=== PATIENT | female | born 1960 | race Caucasian/White ===

== ENCOUNTER 2016-08-09 10:29 | Emergency (ER) | payer OTHER ==
[~2016-08-09] VITALS: Ht 152.4 cm; Wt 98.5 kg
[~2016-08-09 10:29] MED LIST: ALLEGRA ALLERGY60 MG PO; BENTYL20 MG PO; CHOLESTYRAMINE P4 GM PO; CYANOCOBAL1000 MCG/2 IM; ENDOCET 5-3251 EACH PO; GABAPENTIN100 MG PO; LEVOTHYROXINE75 MCG PO; RABEPRAZOLE SOD20 MG PO; REGLAN10 MG PO
[2016-08-09 11:27] LABS: HEMATOCRIT 51.1 % (36.0-46.0); MCH 28.9 PG (29.0-34.0); MCHC 32.7 G/DL (30.0-36.0); MCV 88.4 FL (83-99); MEAN PLAT.VOLUME 9.5 uM^3 (9.5-12.4); PLATELET COUNT 343 K/uL (156-360); RBC DIS.WIDTH-CV 14.8 % (11.8-14.6); RBC DIS.WIDTH-SD 48.2 % (39-53); RED BLOOD COUNT 5.78 M/uL (3.80-5.20)
[2016-08-09 11:34] LABS: CHLORIDE 105 mEq/L (99-109); POTASSIUM 3.5 mEq/L (3.7-5.4); SODIUM 136 mEq/L (136-147)
[2016-08-09 11:37] LABS: GLUCOSE 185 mg/dL (70-99)
[2016-08-09 11:38] LABS: ANION GAP 17 MEQ/L (2-14)
[2016-08-09 11:39] LABS: TOTAL BILIRUBIN 0.3 mg/dL (0.0-1.0)
[2016-08-09 11:40] LABS: ALKALINE PHOSPHATASE 103 IU/L (3-129); GFR ESTIMATE (CALCULATED) 35 mL/min/
[2016-08-09 11:41] LABS: UREA NITROGEN (BUN) 27 mg/dL (9-23)
[2016-08-09] MEDS ORDERED: COLESTIPOL HCL1 GM PO (12:54)
[2016-08-09 13:57] LABS: AMYLASE 46 IU/L (1-118)
[2016-08-09 14:05] LABS: LIPASE 34 U/L (1.0-51.0)
[2016-08-09 15:26] LABS: ADD MIUA? YES; BILIRUBIN NEGATIVE; BLOOD NEGATIVE; COLOR YELLOW ((YELLOW)); GLUCOSE (STRIP) NEGATIVE; KETONES NEGATIVE; LEUKOCYTES NEGATIVE; NITRITE NEGATIVE; PROTEIN (STRIP) 100; SPECIFIC GRAVITY 1.013 (1.000-1.030); UROBILINOGEN 0.2 MG/DL (0.2-1.0)
[2016-08-09] MEDS ORDERED: ZOFRAN ODT4 MG PO (15:43)
[2016-08-09] MEDS ORDERED: BENTYL20 MG PO (15:43)
[2016-08-09 16:01] LABS: BACTERIA NONE SEEN /HPF; EPITHELIAL CELLS RARE /HPF; HYALINE CASTS 20-30 /LPF; MUCUS TRACE /LPF; RED BLOOD CELLS 0-5 /HPF (0-5); UCUL ADDED? NO; WHITE BLOOD CELLS 0-5 /HPF (0-5)
[2016-08-09 16:04] VITALS: BP 115/84
== END 2016-08-09 16:07 | disposition home or self-care (01) ==
LOC: EME 10:29
DX: R10.817 Generalized abdominal tenderness (principal); R11.2 Nausea with vomiting, unspecified; R19.7 Diarrhea, unspecified; Z85.038 Personal history of other malignant neoplasm of large intestine
CPT/HCPCS: 74176; 80053; 81003; 82150; 83605; 83630; 83690; 85027; 87493; 87506; 99281; 99285; J2405; J3010; J7030

== ENCOUNTER 2016-11-05 23:53 | Emergency (ER) | payer OTHER ==
[~2016-11-05] VITALS: Ht 152.4 cm; Wt 96.3 kg
[~2016-11-05 23:53] MED LIST changes: +COLESTIPOL HCL1 GM PO; +ZOFRAN ODT4 MG PO
[2016-11-06 00:28] LABS: HEMATOCRIT 31.2 % (36.0-46.0); MCH 29.7 PG (29.0-34.0); MCHC 32.4 G/DL (30.0-36.0); MCV 91.8 FL (83-99); MEAN PLAT.VOLUME 9.1 uM^3 (9.5-12.4); PLATELET COUNT 252 K/uL (156-360); RBC DIS.WIDTH-CV 15.5 % (11.8-14.6); WHITE BLOOD COUNT 11.8 K/uL (4.1-10.2)
[2016-11-06 00:43] LABS: CHLORIDE 113 mEq/L (99-109); POTASSIUM 2.9 mEq/L (3.7-5.4); SODIUM 145 mEq/L (136-147)
[2016-11-06 00:45] LABS: GLUCOSE 130 mg/dL (70-99)
[2016-11-06 00:46] LABS: ANION GAP 10 MEQ/L (2-14)
[2016-11-06 00:47] LABS: TOTAL BILIRUBIN 0.3 mg/dL (0.0-1.0)
[2016-11-06 00:48] LABS: ALKALINE PHOSPHATASE 69 IU/L (3-129)
[2016-11-06 00:49] LABS: GFR ESTIMATE (CALCULATED) 54 mL/min/
[2016-11-06 00:50] LABS: UREA NITROGEN (BUN) 17 mg/dL (9-23)
[2016-11-06 01:05] LABS: ADD MIUA? YES; BILIRUBIN NEGATIVE; BLOOD NEGATIVE; COLOR STRAW ((YELLOW)); GLUCOSE (STRIP) NEGATIVE; KETONES NEGATIVE; LEUKOCYTES MODERATE; NITRITE NEGATIVE; PROTEIN (STRIP) NEGATIVE; SPECIFIC GRAVITY 1.004 (1.000-1.030); UROBILINOGEN 0.2 MG/DL (0.2-1.0)
[2016-11-06 01:20] LABS: BACTERIA NONE SEEN /HPF; EPITHELIAL CELLS 1+ /HPF; MUCUS NONE SEEN /LPF; RED BLOOD CELLS 0-5 /HPF (0-5); UCUL ADDED? NO; WHITE BLOOD CELLS 15-20 /HPF (0-5)
[2016-11-06 02:10] VITALS: BP 107/71
== END 2016-11-06 02:14 | disposition home or self-care (01) ==
LOC: EME 23:53
DX: R60.0 Localized edema (principal); E87.6 Hypokalemia; L70.9 Acne, unspecified; Z85.038 Personal history of other malignant neoplasm of large intestine; Z90.49 Acquired absence of other specified parts of digestive tract; Z90.710 Acquired absence of both cervix and uterus; Z87.891 Personal history of nicotine dependence
CPT/HCPCS: 80053; 81003; 85027; 99281; 99284

== ENCOUNTER 2017-01-07 17:31 | Emergency (ER) | payer OTHER ==
[~2017-01-07] VITALS: Ht 152.4 cm; Wt 99.4 kg
[2017-01-07 18:00] LABS: HEMATOCRIT 37.5 % (36.0-46.0); MCH 30.2 PG (29.0-34.0); MCHC 32.5 G/DL (30.0-36.0); MCV 92.8 FL (83-99); PLATELET COUNT 303 K/uL (156-360); RBC DIS.WIDTH-CV 13.7 % (11.8-14.6); RBC DIS.WIDTH-SD 46.9 % (39-53); RED BLOOD COUNT 4.04 M/uL (3.80-5.20); WHITE BLOOD COUNT 12.6 K/uL (4.1-10.2)
[2017-01-07 18:09] LABS: CHLORIDE 105 mEq/L (99-109); POTASSIUM 3.6 mEq/L (3.7-5.4); SODIUM 140 mEq/L (136-147)
[2017-01-07 18:11] LABS: GLUCOSE 194 mg/dL (70-99)
[2017-01-07 18:12] LABS: ANION GAP 13 MEQ/L (2-14)
[2017-01-07 18:13] LABS: TOTAL BILIRUBIN 0.3 mg/dL (0.0-1.0)
[2017-01-07 18:15] LABS: ALKALINE PHOSPHATASE 99 IU/L (3-129); GFR ESTIMATE (CALCULATED) 54 mL/min/
[2017-01-07 18:16] LABS: UREA NITROGEN (BUN) 22 mg/dL (9-23)
[2017-01-07 18:18] LABS: LIPASE 30 U/L (1.0-51.0)
[2017-01-07 19:21] LABS: ADD MIUA? NO; BILIRUBIN NEGATIVE; BLOOD NEGATIVE; COLOR YELLOW ((YELLOW)); GLUCOSE (STRIP) 50; KETONES NEGATIVE; LEUKOCYTES NEGATIVE; NITRITE NEGATIVE; PROTEIN (STRIP) NEGATIVE; SPECIFIC GRAVITY 1.023 (1.000-1.030); UCUL ADDED? NO; UROBILINOGEN 0.2 MG/DL (0.2-1.0)
[2017-01-07 21:14] VITALS: BP 108/62
== END 2017-01-07 21:14 | disposition home or self-care (01) ==
LOC: EME 17:31
PROVIDERS: Emergency Medicine
DX: R10.9 Unspecified abdominal pain (principal); R11.0 Nausea; Z85.038 Personal history of other malignant neoplasm of large intestine; Z90.49 Acquired absence of other specified parts of digestive tract; Z87.891 Personal history of nicotine dependence
CPT/HCPCS: 74177; 80053; 81003; 83690; 85027; 99281; 99285; J2270; J2405